=== PATIENT | female | born 1950 | race Caucasian/White ===

== ENCOUNTER 2017-02-02 17:58 | Emergency (ER) | payer OTHER ==
[~2017-02-02] VITALS: Ht 152.4 cm; Wt 81.0 kg
[2017-02-02 18:08] VITALS: Ht 152.4 cm; Wt 81.0 kg
[2017-02-02 21:13] LABS: ADD SCAN DIFF NO
[2017-02-02 21:14] LABS: BASOPHIL # 0.1 10^3/ul (0.0-0.1); BASOPHILS % 0.6 % (0.0-2.0); EOSINOPHILS # 0.5 10^3/ul (0.0-0.5); EOSINOPHILS % 4.9 % (0.0-7.0); HEMATOCRIT 39.3 % (37.0-47.0); LYMPHOCYTES # 2.7 10^3/ul (0.8-2.9); LYMPHOCYTES % 24.9 % (15.0-51.0); MEAN CORPUSCULAR HEMOGLOBIN 28.6 pg (29.0-33.0); MEAN CORPUSCULAR HGB CONC 33.1 g/dl (32.0-37.0); MEAN CORPUSCULAR VOLUME 86.4 fl (82.0-101.0); MEAN PLATELET VOLUME 10.8 fl (7.4-10.4); MONOCYTE # 0.9 10^3/ul (0.3-0.9); MONOCYTES % 8.1 % (0.0-11.0); NEUTROPHIL # 6.6 10^3/ul (1.6-7.5); NEUTROPHILS % 61.1 % (39.0-77.0); PLATELET COUNT 283 10^3/UL (140-415); RED BLOOD COUNT 4.55 10^6/ul (4.20-5.40); RED CELL DISTRIBUTION WIDTH 13.8 % (11.5-14.5); WHITE BLOOD COUNT 10.7 10^3/ul (4.8-10.8)
[2017-02-02 21:28] LABS: INR 0.93; PROTIME 12.5 Sec (12.2-14.2)
[2017-02-02 21:29] LABS: PARTIAL THROMBOPLASTIN TIME 31.7 Sec (25.0-35.0)
[2017-02-02 21:30] LABS: ALBUMIN 4.9 g/dl (3.3-4.9)
[2017-02-02 21:31] LABS: POTASSIUM 3.6 mmol/L (3.5-5.1)
[2017-02-02 21:33] LABS: ALBUMIN/GLOBULIN RATIO 1.58; BILIRUBIN,INDIRECT 0.3 mg/dl (0-1.1); BILIRUBIN,TOTAL 0.3 mg/dl (0.2-1.3); CREATININE 0.65 mg/dl (0.44-1.00)
[2017-02-02 21:34] LABS: CALCIUM 9.6 mg/dl (8.4-10.2)
[2017-02-02] MEDS ORDERED: SOD CHLORIDE 0.9% 100 ML ONE (21:41)
[2017-02-02] MEDS ORDERED: IOHEXOL 300MG/ML 150 ML BTL ONE (21:41)
[2017-02-02 21:47] LABS: ADD UMIC YES; URINE BILIRUBIN (Dip) NEGATIVE (NEGATIVE); URINE BLOOD (Dip) 3+ (NEGATIVE); URINE COLOR LT. YELLOW (YELLOW); URINE GLUCOSE (Dip) NEGATIVE (NEGATIVE); URINE KETONES (Dip) NEGATIVE (NEGATIVE); URINE LEUKOCYTE ESTERASE (Dip) 1+ (NEGATIVE); URINE NITRITE (Dip) NEGATIVE (NEGATIVE); URINE TOTAL PROTEIN (Dip) NEGATIVE (NEGATIVE); URINE UROBILINOGEN (Dip) 0.2 E.U./dL (0.1-1.0)
[2017-02-02 21:56] LABS: BACTERIA,URINE FEW; URINE RBCS >50 /HPF (0)
--- NOTE | 2017-02-02 22:42 | RADRPT ---
PROCEDURE: Ultrasound pelvis CLINICAL INDICATION: Pelvic Pain/Vaginal Bleeding TECHNIQUE: Multiple cabrera scale and color Doppler images of the pelvis were obtained transabdominal ly and transvaginally. Images were reviewed PACS workstation COMPARISON: None FINDINGS: The uterus is identified, measuring 8.4 x 3.8 x 6.5 cm. There is a right uterine intramural fibroid , measuring 3.0 x 3.2 x 3.1 cm. The endometrial canal appears thickened, measuring 12 mm in thickne ss. The left ovary measures 2.7 x 1.9 x 3.0 cm. The right ovary is not well seen. There is left ovaria n vascular flow identified. There is no evidence of free fluid. There is no abnormal adnexal mass. IMPRESSION: 1. Right fundal fibroid, 3.0 x 3.2 x 2.1 cm. 2. The endometrium is thickened , measuring 12 mm. Hysteroscopy or hysterosonogram recommended. 3. Right ovary not well seen. No free fluid or adnexal mass. RPTAT: HBST .Rayo Shi MD, Date Time Electronically viewed and signed by .Rayo Shi MD, on 02/02/2017 22:42 .T/
--- NOTE | 2017-02-02 23:03 | RADRPT ---
PROCEDURE: CT ABDOMEN/PELVIS WITH CONTRAST CLINICAL INDICATION: 66-year-old female with abdominal pain and vaginal bleeding. TECHNIQUE: The study was performed utilizing a [employer] VCT 64-slice CT scanner. Direct axia l sections were obtained through the abdomen and pelvis with the use of 100 cc of Omnipaque-300 yaneli onic intravenous contrast material. Sagittal and coronal reformations were obtained. One or more of the following dose reduction techniques were utilized: automated exposure control, adjustment of the mA and/or kV according to patient's size or use of iterative reconstruction technique. The images were reviewed on a PACS workstation. CTD/vol = 22.0 mGy; Total Exam DLP = 1231.1 mGy-cm. COMPARISON: Pelvic ultrasound February 02, 2017. FINDINGS: The lung bases are unremarkable. There is no evidence for significant pleural effusion. The liver has a normal size and contour. There is mild diffuse decreased density throughout the liver consist ent with fatty infiltration without focal areas of abnormal density or contrast enhancement. No intr ahepatic nor extrahepatic biliary ductal dilatation is seen. The gallbladder demonstrates no wall th ickening nor pericholecystic fluid. No biliary stones are evident. The pancreas is without areas of abnormal attenuation or contrast enhancement. This spleen is identified and has a normal size witho ut abnormal density or contrast enhancement. The adrenal glands are unremarkable. The kidneys are fu nctional bilaterally without abnormal density. No hydroureteronephrosis nor nephroureterolithiasis i s evident. The urinary bladder contains urine. There is mild nonspecific diffuse thickening of the d istal esophagus. There is a small umbilical hernia with an opening of 1.4 x 1.4 cm containing fat. There is mild retained stool within the colon without obstruction. The appendix is visualized and i s without edema or surrounding inflammatory reaction. The uterus is enlarged with a lobular heteroge neous appearance measuring approximately 9.1 x 7.5 x 6.7 cm. There is no significant free fluid. Mu ltiple small pelvic phleboliths are noted. There calcified gluteal injection soft tissue granulomat a. The aortoiliac vessels are without aneurysmal dilatation. Mild degenerative changes are present w ithin the spine. IMPRESSION: 1. Mild diffuse fatty infiltration of the liver. 2. Small umbilical hernia containing fat. 3. Mild nonspecific distal esophageal circumferential thickening. 4. Retained stool without obstruction. 5. No CT evidence for appendicitis. 6. Enlarged lobular heterogeneous uterus. 7. Degenerative changes within the spine. .Garfield Samson MD, Date Time Electronically viewed and signed by .Garfield Samson MD, on 02/02/2017 23:03 .Roxy
--- NOTE | 2017-02-02 23:19 | ERD ---
ER Documentation Chief Complaint Date/Time DATE: 02/02/17 TIME: 23:14 Chief Complaint VAG BLEED WITH WEAKNESS X 10 DAYS HPI 66-year-old hypertensive female ambulatory to the ED complaining of a 10 day history of crampy, moderate, suprapubic abdominal pain which radiates to the back with intermittent vaginal bleeding. No dysuria, polyuria, hematuria or flank pain. Generalized weakness but no focal weakness or numbness. Denies headache or neck pain. No chest pain or palpitations. Denies shortness of breath or cough. No relieving or exacerbating factors. No fevers or chills. ROS All systems reviewed and are negative except as per history of present illness. Medications Home Meds Active Scripts Ibuprofen* (Motrin*) 600 Mg Tab, 600 MG PO Q6H Y for PAIN AND OR ELEVATED TEMP, #20 TAB With food or milk Prov:ANNA MELGOZA MD 02/02/17 PMhx/Soc Reviewed in chart. As per HPI. Medical and Surgical Hx: pt denies Surgical Hx Hx Cardiac Disorders: Yes (HTN) Hx Alcohol Use: No Hx Substance Use: No Hx Tobacco Use: Yes (1-2 CIGS A DAY) Smoking Status: Current every day smoker FmHx Reviewed in chart. As per HPI. Physical Exam Vitals Vital Signs Date Time Temp Pulse Resp B/P Pulse Ox O2 Delivery O2 Flow Rate FiO2 02/02/17 22:16 58 18 149/85 98 Room Air 02/02/17 18:08 99.5 62 18 202/93 98 Physical Exam Const: Alert, moderate distress due to pain. Head: Atraumatic Eyes: Normal Conjunctiva ENT: Normal External Ears, Nose and Mouth. Neck: Full range of motion. Nontender. No lymphadenopathy. Resp: Clear to auscultation bilaterally Cardio: Regular rate and rhythm, no murmurs Abd: Soft, obese, suprapubic tenderness. Non distended. Normal bowel sounds. No rebound or guarding. Genitourinary exam deferred. Skin: No petechiae or rashes Back: No midline or flank tenderness Ext: No cyanosis, or edema Neur: Awake and alert Psych: Normal Mood and Affect Result Diagram: 02/02/17205402/02/172054 Results 24 hrs Laboratory Tests Test 02/02/17 20:50 02/02/17 20:55 Urine Color LT. YELLOW Urine Clarity HAZY Urine pH 6.0 Urine Specific Stanley 1.015 Urine Ketones NEGATIVE Urine Nitrite NEGATIVE Urine Bilirubin NEGATIVE Urine Urobilinogen 0.2 E.U./dL Urine Leukocyte Esterase 1+ Urine Microscopic RBC >50/HPF Urine Microscopic WBC 5-10/HPF Urine Epithelial Cells MODERATE Urine Bacteria FEW Urine Hemoglobin 3+ Urine Glucose NEGATIVE% Urine Total Protein NEGATIVE White Blood Count 10.710^3/ul Red Blood Count 4.5510^6/ul Hemoglobin 13.0g/dl Hematocrit 39.3% Mean Corpuscular Volume 86.4fl Mean Corpuscular Hemoglobin 28.6pg Mean Corpuscular Hemoglobin Concent 33.1g/dl Red Cell Distribution Width 13.8% Platelet Count 60647^3/UL Mean Platelet Volume 10.8fl Neutrophils % 61.1% Lymphocytes % 24.9% Monocytes % 8.1% Eosinophils % 4.9% Basophils % 0.6% Nucleated Red Blood Cells % 0.0/100WBC Neutrophils # 6.610^3/ul Lymphocytes # 2.710^3/ul Monocytes # 0.910^3/ul Eosinophils # 0.510^3/ul Basophils # 0.110^3/ul Nucleated Red Blood Cells # 0.010^3/ul Prothrombin Time 12.5Sec Prothrombin Time Ratio 1.0 INR International Normalized Ratio 0.93 Activated Partial Thromboplast Time 31.7Sec Sodium Level 145mmol/L Potassium Level 3.6mmol/L Chloride Level 103mmol/L Carbon Dioxide Level 25mmol/L Anion Gap 21 Blood Urea Nitrogen 18mg/dl Creatinine 0.65mg/dl Glucose Level 100mg/dl Calcium Level 9.6mg/dl Total Bilirubin 0.3mg/dl Direct Bilirubin 0.00mg/dl Indirect Bilirubin 0.3mg/dl Aspartate Amino Transf (AST/SGOT) 18IU/L Alanine Aminotransferase (ALT/SGPT) 30IU/L Alkaline Phosphatase 79IU/L Total Protein 8.0g/dl Albumin 4.9g/dl Globulin 3.10g/dl Albumin/Globulin Ratio 1.58 Lipase 118U/L Current Medications Medications (Trade) Dose Ordered Sig/Krista Route PRN Reason Start Time Stop Time Status Last Admin Dose Admin IV Flush 10 ml 10 ml STK-MED ONCE .ROUTE 02/02/17 21:41 02/02/17 21:42 DC 02/02/17 22:31 Sodium Chloride (NS) 100 ml @ ud STK-MED ONCE .ROUTE 02/02/17 21:41 02/02/17 21:42 DC 02/02/17 22:32 Iohexol (Omnipaque 300mg/ ml) 150 ml STK-MED ONCE .ROUTE 02/02/17 21:41 02/02/17 21:42 DC 02/02/17 22:32 Ketorolac Tromethamine (Toradol) 15 mg ONCE STAT IV 02/02/17 23:20 02/02/17 23:21 DC PROCEDURE: CT ABDOMEN/PELVIS WITH CONTRAST CLINICAL INDICATION: 66-year-old female with abdominal pain and vaginal bleeding. TECHNIQUE: The study was performed utilizing a [employer] 64-slice CT scanner. Direct axial sections were obtained through the abdomen and pelvis with the use of 100 cc of Omnipaque-300 nonionic intravenous contrast material. Sagittal and coronal reformations were obtained. One or more of the following dose reduction techniques were utilized: automated exposure control, adjustment of the mA and/or kV according to patient's size or use of iterative reconstruction technique. The images were reviewed on a PACS workstation. CTD/ vol = 22.0 mGy; Total Exam DLP = 1231.1 mGy-cm. COMPARISON: Pelvic ultrasound February 02, 2017. FINDINGS: The lung bases are unremarkable. There is no evidence for significant pleural effusion. The liver has a normal size and contour. There is mild diffuse decreased density throughout the liver consistent with fatty infiltration without focal areas of abnormal density or contrast enhancement. No intrahepatic nor extrahepatic biliary ductal dilatation is seen. The gallbladder demonstrates no wall thickening nor pericholecystic fluid. No biliary stones are evident. The pancreas is without areas of abnormal attenuation or contrast enhancement. This spleen is identified and has a normal size without abnormal density or contrast enhancement. The adrenal glands are unremarkable. The kidneys are functional bilaterally without abnormal density. No hydroureteronephrosis nor nephroureterolithiasis is evident. The urinary bladder contains urine. There is mild nonspecific diffuse thickening of the distal esophagus. There is a small umbilical hernia with an opening of 1.4 x 1.4 cm containing fat. There is mild retained stool within the colon without obstruction. The appendix is visualized and is without edema or surrounding inflammatory reaction. The uterus is enlarged with a lobular heterogeneous appearance measuring approximately 9.1 x 7.5 x 6.7 cm. There is no significant free fluid. Multiple small pelvic phleboliths are noted. There calcified gluteal injection soft tissue granulomata. The aortoiliac vessels are without aneurysmal dilatation. Mild degenerative changes are present within the spine. IMPRESSION: 1. Mild diffuse fatty infiltration of the liver. 2. Small umbilical hernia containing fat. 3. Mild nonspecific distal esophageal circumferential thickening. 4. Retained stool without obstruction. 5. No CT evidence for appendicitis. 6. Enlarged lobular heterogeneous uterus. 7. Degenerative changes within the spine. .Garfield Samson MD, MD Date Time Electronically viewed and signed by .Garfield Samosn MD, MD on 02/02/2017 23:03 .M/ PROCEDURE: Ultrasound pelvis CLINICAL INDICATION: Pelvic Pain/Vaginal Bleeding TECHNIQUE: Multiple cabrera scale and color Doppler images of the pelvis were obtained transabdominally and transvaginally. Images were reviewed PACS workstation COMPARISON: None FINDINGS: The uterus is identified, measuring 8.4 x 3.8 x 6.5 cm. There is a right uterine intramural fibroid, measuring 3.0 x 3.2 x 3.1 cm. The endometrial canal appears thickened, measuring 12 mm in thickness. The left ovary measures 2.7 x 1.9 x 3.0 cm. The right ovary is not well seen. There is left ovarian vascular flow identified. There is no evidence of free fluid. There is no abnormal adnexal mass. IMPRESSION: 1. Right fundal fibroid, 3.0 x 3.2 x 2.1 cm. 2. The endometrium is thickened , measuring 12 mm. Hysteroscopy or hysterosonogram recommended. 3. Right ovary not well seen. No free fluid or adnexal mass. RPTAT: HBST Signed By: Rayo Shi MD 02/02/2017 10:42:25 PM Procedures/MDM DOCUMENTS REVIEWED: ED nurse no prior records available MEDICAL DECISION MAKIN-year-old hypertensive female ambulatory to the ED complaining of a 10 day history of crampy, moderate, suprapubic abdominal pain which radiates to the back with intermittent vaginal bleeding. Patient presents with postmenopausal bleeding. Ultrasound reveals leiomyoma. An occult malignancy is not ruled out. No anemia or hemodynamic instability. Abdominal exam reveals no rebound, guarding or signs of peritonitis. No CT evidence of appendicitis, diverticulitis, obstructive uropathy, masses or bowel obstruction. Stable for discharge with appropriate analgesics, pain, fever, bleeding precautions and outpatient follow-up as counseled. Counseled patient and family regarding diagnostic workup, diagnosis and need for followup. Understands to return to ED if symptoms recur, worsen or any other concerns. Departure Diagnosis: Primary Impression: Vaginal bleeding Additional Impressions: Suprapubic abdominal pain Uterine leiomyoma Uterine leiomyoma location: unspecified location Qualified Code: D25.9 - Uterine leiomyoma, unspecified location Condition: Stable Patient Instructions: Uterine Fibroids ANNA MELGOZA MD Feb 02, 2017 23:19
[2017-02-02] MEDS ORDERED: IBUP-1542 PO (23:26)
[2017-02-02] MEDS: KETOROLAC 15 MG INJ IV STA ×2 (23:52→23:57)
[2017-02-02 23:57] VITALS: BP 160/81; PULSE 57; RESP 18
== END 2017-02-02 23:58 | disposition home or self-care (01) ==
LOC: E/R 17:58
DX: N93.9 Abnormal uterine and vaginal bleeding, unspecified (principal); R10.30 Lower abdominal pain, unspecified; D25.9 Leiomyoma of uterus, unspecified; I10 Essential (primary) hypertension; F17.210 Nicotine dependence, cigarettes, uncomplicated
CPT/HCPCS: 36415; 74177; 76830; 76856; 80053; 81001; 81003; 83690; 85025; 85610; 85730; J1885; Q9967; Z7502; Z7610